=== PATIENT | male | born 1950 | race Caucasian/White ===

== ENCOUNTER 2018-08-04 12:19 | Observation (INO) | payer MEDICARE, OTHER ==
[~2018-08-04] VITALS: Ht 167.6 cm; Wt 86.4 kg
[~2018-08-04 12:19] MED LIST: ANTIDIARRHEAL PO; ASPIRIN 81M81 MG/TA2 PO; ATARAX 25MG25 MG/TAB PO; DESYREL 50MG50 MG PO; GARLIC100 MG PO; GLUCOSAMIN 500 PO; Legatrin PO; MINIPRESS 1M1 MG/CAP PO; MULTI VITAMINS1 TAB PO; OMEGA-3 1000 MG1 CAP PO; TYLENOL 500MG500 MG PO; VITAMIN C500 MG PO; VITAMIN D 1001000 IU PO; ZOCOR 40MG40 MG PO
[2018-08-04 13:08] LABS: HEMATOCRIT 39.5 % (42.0-52.0); HEMOGLOBIN 13.9 g/dl (13.5-18.0); MEAN CELL VOLUME 92 fl (80.0-100.0); MEAN CORPUSCULAR HEMOGLOBIN 32 pg (27.0-31.0); MEAN CORPUSCULAR HGB CONC 35 g/dl (33.0-37.0); MEAN PLATELET VOLUME 11.3 fl (7.4-10.4); PLATELET COUNT 176 K/mm3 (130-400); RED BLOOD COUNT 4.29 M/mm3 (4.20-5.60); REDCELL DISTRIBUTION WIDTH-CV 11.9 % (11.5-14.5)
[2018-08-04 13:20] LABS: ALBUMIN 3.8 gm/dL (3.5-5.0); C-REACTIVE PROTEIN 0.8 mg/dL (0.0-0.9); CALCIUM 8.2 mg/dL (8.4-10.2); CREATININE, serum 0.71 mg/dL (0.66-1.25); POTASSIUM 3.6 mmol/L (3.4-5.0); TOTAL PROTEIN 6.8 gm/dL (6.4-8.2)
[2018-08-04 13:24] LABS: BAND 13 % (0-10); LYMPHOCYTE 1 % (20.0-51.0); NEUTROPHILS 82 % (42.0-75.2); PLATELET ESTIMATE NORMAL (NORMAL)
[2018-08-04 14:14] LABS: COLLECTION METHOD CLEAN CATCH
[2018-08-04 14:21] LABS: MUCOUS Present /lpf; PH 5 (5-8); SQUAMOUS EPITHELIAL None Seen /hpf; URINE APPEARANCE Clear; URINE BACTERIA None Seen /hpf; URINE BILIRUBIN Negative (NEGATIVE); URINE BLOOD 1+ (NEGATIVE); URINE COLOR Yellow; URINE GLUCOSE Negative (NEGATIVE); URINE KETONE Negative (NEGATIVE); URINE LEUKOCYTE ESTERASE Negative (NEGATIVE); URINE NITRATE Negative (NEGATIVE); URINE PROTEIN(semi-quant) Negative (NEGATIVE); URINE RBC 0-2 /hpf; URINE UROBILINOGEN Negative (NEGATIVE)
[2018-08-04 18:00] VITALS: BP 113/51; PULSE 81
[2018-08-04 18:19] VITALS: BP 131/63; PULSE 80
[2018-08-04 18:49] VITALS: BP 125/59; PULSE 85
[2018-08-04 19:19] VITALS: BP 126/58; PULSE 96
[2018-08-04 20:19] VITALS: BP 105/60; PULSE 94
[2018-08-05 04:00] VITALS: BP 96/59; PULSE 87; TEMP 99.5
[2018-08-05 07:28] VITALS: BP 111/61; PULSE 88; TEMP 98.8
[2018-08-05 11:49] VITALS: BP 127/72; PULSE 94; TEMP 97.5
== END 2018-08-05 16:11 | disposition home or self-care (01) ==
LOC: COL.ER 12:19 → SURG 14:55
PROVIDERS: Family Medicine
DX: K80.12 Calculus of gallbladder with acute and chronic cholecystitis without obstruction (principal); E78.5 Hyperlipidemia, unspecified; N40.0 Benign prostatic hyperplasia without lower urinary tract symptoms; F32.9 Major depressive disorder, single episode, unspecified; F41.9 Anxiety disorder, unspecified; F43.10 Post-traumatic stress disorder, unspecified; Z79.82 Long term (current) use of aspirin; Z96.659 Presence of unspecified artificial knee joint; Z87.891 Personal history of nicotine dependence
CPT/HCPCS: G0378; J1100; J1885; J2405; J2543; J2550; J2704; J2710; J3010; J7030; Q9967